=== PATIENT | female | born 1990 | race Caucasian/White ===

== ENCOUNTER → 2019-12-18 07:32 | Outpatient (BNVA) | payer MEDICAID, SELFPAY | PROVIDERS: Visit Provider Psychiatry & Neurology Psychiatry | DX: F60.3 Borderline personality disorder (principal); F43.10 Post-traumatic stress disorder, unspecified; F12.20 Cannabis dependence, uncomplicated; F15.21 Other stimulant dependence, in remission; F17.210 Nicotine dependence, cigarettes, uncomplicated ==

== ENCOUNTER → 2020-12-05 07:37 | Outpatient (BNVA) | payer BC, SELFPAY | PROVIDERS: Visit Provider Psychiatry & Neurology Psychiatry | DX: F60.3 Borderline personality disorder (principal); F43.10 Post-traumatic stress disorder, unspecified; F12.20 Cannabis dependence, uncomplicated; F15.21 Other stimulant dependence, in remission; F17.210 Nicotine dependence, cigarettes, uncomplicated | CPT/HCPCS: 99214 ==

== ENCOUNTER → 2021-01-06 07:38 | Outpatient (BNVA) | payer BC, SELFPAY | PROVIDERS: Visit Provider Psychiatry & Neurology Psychiatry | DX: F43.10 Post-traumatic stress disorder, unspecified (principal); F60.3 Borderline personality disorder; F17.210 Nicotine dependence, cigarettes, uncomplicated; F15.21 Other stimulant dependence, in remission; F12.20 Cannabis dependence, uncomplicated | CPT/HCPCS: 99214 ==

== ENCOUNTER 2022-12-29 20:50 | Inpatient (IN) | payer BC, SELFPAY ==
--- NOTE | 2022-12-29 21:31 | W.ED.PSYCHS ---
HPI - Psych General: Stated Complaint: si Time Seen by Provider: 12/29/22 20:57 Source: patient Mode of arrival: ambulatory Limitations: no limitations History of Present Illness: 32-year-old female states that she has been having increased depression she states she is having some self-harm thoughts no actual suicidal plan she states she is just been very stressed and depressed she has been out of her meds. She denies any worsening improving factors she states she wants to be admitted to the [facility] to get her meds readjusted. Associated symptoms: Reports depression Review of Systems Const: Denies: fever(s), chills, body aches or change in appetite ENMT: Denies: throat pain or dental pain Card: Denies: chest pain Resp: Denies: dyspnea GI: Denies: abdominal pain, nausea, vomiting or diarrhea : Denies: dysuria Musc: Denies: neck pain or back pain Skin/Breast: Denies: rash Neuro: Denies: headache(s) Psych: Reports: depression [facility] ED PFSH: Medical History Borderline personality disorder Cigarette smoker Complex posttraumatic stress disorder Other stimulant dependence, in remission Physical Exam Const: COMMON NORMALS: no acute distress and patient oriented x3 HENMT: COMMON NORMALS: normocephalic HEAD & SCALP: normocephalic Eye: COMMON NORMALS: conjunctivae normal CONJUNCTIVA: Yes conjunctivae normal Neck/C-Spine: COMMON NORMALS: supple Chest: COMMONS NORMALS: normal inspection of the chest Resp: COMMON NORMALS: normal respiratory effort Cardio: COMMON NORMALS: regular rate RATE: regular rate Extremity: COMMON NORMALS: normal to inspection Neuro: COMMON NORMALS: patient oriented x3 Psych: COMMON NORMALS: mental status grossly normal MOOD & AFFECT: Yes depressed mood MDM - Psych Medical Decision Making Patient presents with depression she is voluntarily want to be admitted she is not actively suicidal did speak to the psychiatrist will admit for depression and to restart her psych meds. Medical Records I reviewed the patient's medical records. Lab Data I reviewed the patient's lab results. Discharge Plan Discharge Patient Disposition: Admitted As Inpatient Admit Provider: Riley Root Clinical Impression: Suicidal ideation Condition: Stable Coding Level of Care Code ED Quality Control Analyst for Deborah Chicas
[2022-12-29 21:44] VITALS: BMI 30.4
[2022-12-29 21:50] VITALS: BP 148/88; PULSE 81; RESP 18; TEMP 36.6; O2SAT 97
[2022-12-29 22:14] LABS: Basophils # 0.1 10^3/uL (0.0-0.1); Eosinophils # 0.2 10^3/uL (0.0-0.8); Eosinophils % 2.9 %; Hematocrit 39.7 % (37.0-47.0); Hemoglobin 13.3 g/dL (11.5-15.3); Lymphocytes # 2.3 10^3/uL (0.8-4.8); Lymphocytes % 29.7 %; Mean Corpuscular HGB Conc 33.5 g/dL (30.0-36.0); Mean Corpuscular Volume 86.5 fl (81-99); Mean Platelet Volume 10.1 fL (7.4-10.4); Monocytes # 0.6 10^3/uL (0.2-0.9); Monocytes % 8.2 %; Neutrophils # 4.35 10^3/uL (1.8-7.7); Neutrophils % 56.8 %; Nucleated Red Blood Cells % 0 %; Platelet Count 285 10^3/cmm (130-400); Red Blood Count 4.59 10^6/uL (4.1-5.3); Red Cell Distribution Width 12.9 % (12.1-15.1); White Blood Count 7.7 10^3/uL (4.0-10.0)
[2022-12-29 22:25] LABS: Alanine Aminotransferase 25 U/L (0-33); Albumin Level 4.1 g/dL (3.5-5.2); Alkaline Phosphatase 70 U/L (35-105); Blood Urea Nitrogen 11 mg/dL (6-20); Calcium 8.7 mg/dL (8.5-10.5); Carbon Dioxide 23 mmol/L (22-29); Chloride 104 mmol/L (98-107); Globulin 2.8 g/dL (1.3-4.6); Glomerular Filtration Rate 141.2 mL/min (90-130); Glucose 97 mg/dL (65-115); Osmolality Calculated 285 mOsm/kg (285-295); Salicylate 0.6 mg/dL (3-10); Sodium 138 mmol/L (136-145); Total Bilirubin 0.5 mg/dL (0.15-1.2); Total Protein 6.9 g/dL (6.6-8.7)
[2022-12-29 22:26] LABS: Acetaminophen < 5.0 ug/mL (10-30); Alcohol Level < 10 mg/dL (0-10)
[2022-12-29 22:27] LABS: Anion Gap 14.8 (5-19); Aspartate Amino Transferase 24 U/L (0-32); Potassium 3.8 mmol/L (3.5-5.1)
[2022-12-29 23:00] VITALS: BP 152/99; PULSE 73; RESP 18; TEMP 36.6; O2SAT 97
[2022-12-30] MEDS: nicotine 2 mg Gum BUCCAL ×2 (00:24→08:20)
[2022-12-30 00:46] LABS: HCG Qualitative Urine. Negative (Negative)
[2022-12-30 01:44] LABS: Amphetamines Screen Urine Positive (Negative); Barbiturates Screen Urine Negative (Negative); Benzodiazepines Screen Urine Negative (Negative); Cocaine Screen Urine Negative (Negative); Opiate Screen Urine Negative (Negative); PCP Screen Urine Negative (Negative); THC Screen Urine Positive (Negative)
[2022-12-30 06:00] VITALS: BP 157/81; PULSE 74; RESP 18; O2SAT 98
[2022-12-30] MEDS: buPROPion XL (24 HR) 300 mg Tablet PO (08:19)
[2022-12-30] MEDS: lisinopril 10 mg Tablet 30 MG PO (08:19)
--- NOTE | 2022-12-30 09:38 | PC.NURSE ---
During morning assessment, patient denies SI, HI, AVH, anxiety, and depression. Patient states that she does feel some irritability. When asked what she is irritated about, patient couldn't answer.
[2022-12-30] MEDS: nicotine 4 mg lozenge MUCOUS MEM (12:12)
[2022-12-30] MEDS: OLANZapine 5 mg ODT PO (13:48)
--- NOTE | 2022-12-30 13:49 | PC.NURSE ---
Patient came up to nurse, crying, stating that she is experiencing anxiety and withdrawals. Patient then talked with Dr. Davila for a while. After that, patient tearful, still wanting something to help alleviate anxiety. Administered 5mg Zyprexa PO.
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
[2022-12-30 14:00] VITALS: BP 126/82; PULSE 78; RESP 18; TEMP 36.8; O2SAT 98
[2022-12-30] MEDS: paliperidone ER 3 mg Tablet PO (20:06)
[2022-12-30 20:59] VITALS: RESP 15
[2022-12-30] MEDS: acetaminophen 325 mg Tablet 650 MG PO (22:56)
[2022-12-31 06:00] VITALS: BP 157/71; PULSE 67; RESP 15; O2SAT 96
[2022-12-31] MEDS: buPROPion XL (24 HR) 300 mg Tablet PO (08:56)
[2022-12-31] MEDS: escitalopram 10 mg Tablet PO (08:56)
[2022-12-31] MEDS: lisinopril 10 mg Tablet 30 MG PO (08:56)
[2022-12-31] MEDS: nicotine 2 mg Gum BUCCAL ×3 (13:02→21:27)
[2022-12-31 14:00] VITALS: BP 154/84; PULSE 75; RESP 16; TEMP 36.7; O2SAT 97
--- NOTE | 2022-12-31 15:51 | W.PM.NPUPNS ---
Subjective NPU Subjective: 32-year-old white female admitted with methamphetamine abuse with associated depression and aggression when withdrawing from the stimulant. She had continue to endorse depressed mood. She had reported some improvement in sleep. She had endorsed some feelings of hopelessness. She was agreeable to receiving counseling for her addiction. She had reported difficulties with concentration and reported frequent fatigue and low energy. Patient had reported some feelings of worthlessness. She had reported often feeling tired and not rested when awakening. She had been able to attend groups and reported poor appetite. Mental Status Exam MSE Comments: .She is a casually dressed obese white female who appeared her stated age.? She appeared in moderate to severe distress.? She was less tearful during the interview.? She had poor eye contact.? Her gait was within normal limits.? Her hygiene was poor.? There was no evidence of any abnormal involuntary motor movements tics or tremors appreciated.? Her mood continues to be described as depressed.? Her affect was dysphoric and mood-congruent.? Her thought process was linear, logical and goal-directed.? Her thought content showed no evidence of active suicidal or homicidal ideation.? There was no clear evidence of delusional thinking she did not appear to be responding to internal stimuli.? Her recent and remote memory appeared grossly intact.? Her insight was poor.? Her judgment was poor.? Her impulse control appeared limited.? Her attention span appeared faired. Vitals/I&O/Wt Last Vital Signs Temp 98.0 F 12/31/22 14:00 Pulse 75 12/31/22 14:00 Resp 16 12/31/22 14:00 BP 154/84 12/31/22 14:00 Pulse Ox 97 12/31/22 14:00 O2 Del Method Room Air 12/31/22 14:00 Weight last 48 hrs Weight 90.718 kg Data NPU 12/29/22 21:51 12/29/22 21:51 A&P Assessment and plan (1) Dysthymic disorder: (2) Methamphetamine dependence: (3) Complex posttraumatic stress disorder: (4) Borderline personality disorder: Plan Dayami is a 32-year-old white female with a history of methamphetamine dependence along with a history of dysthymia and periods of intense agitation currently endorsing increased agitation, homicidal thoughts and worsening depression. 1. Encourage individual, group and milieu therapy. ?2.Recommend sober living treatment at the highest level of care to which the patient is willing to commit. 3.Continue q-15 minute checks for safety.? 4.Continue Wellbutrin XL 300mg in am, lexapro 10mg in am, and Invega 3mg at night to target agitation. Involuntary Hold Information 96 Hour Hold: 96 Hour Involuntary Admission: No Attestations NPU Medical Necessity Statement*: Inpatient hospitalization is medically necessary and deemed to be the clinically appropriate intevention at this time.? We will monitor/initiate medications and make changes as indicated. Her likely length of stay is 3-5 days. Coding Level of Care Code Acute Code for g Fwd Diagnoses Dysthymic disorder F34.1 Methamphetamine dependence F15.20 Complex posttraumatic stress disorder F43.10 Borderline personality disorder F60.3
[2022-12-31 20:08] VITALS: BP 128/70; PULSE 79; RESP 16; O2SAT 93
[2022-12-31] MEDS: paliperidone ER 3 mg Tablet PO (21:25)
[2023-01-01] MEDS: nicotine 2 mg Gum BUCCAL ×3 (03:44→17:26)
[2023-01-01] MEDS: hyDROXYzine 25 mg Capsule 50 MG PO (03:46)
--- NOTE | 2023-01-01 04:14 | PC.NURSE ---
Patient has slept this shift only coming to nurses station for snacks or medication. Patient denies SI/HI/AVH. She endorses anxiety rated 7/10 and depression 6/10. Affect flat with poor eye contact. Patient insight is poor.
[2023-01-01 06:00] VITALS: BP 151/69; PULSE 68; RESP 16; O2SAT 95
[2023-01-01] MEDS: buPROPion XL (24 HR) 300 mg Tablet PO (09:04)
[2023-01-01] MEDS: escitalopram 10 mg Tablet PO (09:04)
[2023-01-01] MEDS: lisinopril 10 mg Tablet 30 MG PO (09:04)
--- NOTE | 2023-01-01 13:13 | W.PM.NPUPNS ---
Subjective NPU Subjective: 32-year-old white female admitted with methamphetamine abuse with associated depression and aggression when withdrawing from the stimulant. She had continue to endorse depressed mood. She had continued to isolate herself on the milieu. She had reported feeling tired and stated that she had used methamphetamine to help with her chronic problems with low energy. She had reported sleeping better and stated that she felt less angry with her nighttime medication. She had expressed no side effects from her current medications. She reported some continued feelings of hopelessness and stated that she continued to feel sad at times. She had continued to endorse PTSD related symptoms as well. Mental Status Exam MSE Comments: .She is a casually dressed obese white female who appeared her stated age.? She was lying in bed. She appeared in moderate distress.? She had improved eye contact. Her gait was within normal limits.? Her hygiene was improved.? There was no evidence of any abnormal involuntary motor movements tics or tremors appreciated.? Her mood continues to be described as depressed.? Her affect was flat. Her thought process was linear, logical and goal-directed.? Her thought content showed no evidence of active suicidal or homicidal ideation.? There was no clear evidence of delusional thinking and she did not appear to be responding to internal stimuli.? Her recent and remote memory appeared grossly intact.? Her insight was poor.? Her judgment was improving.? Her impulse control appeared limited.? Her attention span appeared fair. Vitals/I&O/Wt Last Vital Signs Temp 98.0 F 12/31/22 14:00 Pulse 68 01/01/23 06:00 Resp 16 01/01/23 06:00 BP 151/69 01/01/23 06:00 Pulse Ox 95 01/01/23 06:00 O2 Del Method Room Air 01/01/23 06:00 Data NPU 12/29/22 21:51 12/29/22 21:51 A&P Assessment and plan (1) Dysthymic disorder: (2) Methamphetamine dependence: (3) Complex posttraumatic stress disorder: (4) Borderline personality disorder: Plan Dayami is a 32-year-old white female with a history of methamphetamine dependence along with a history of dysthymia and periods of intense agitation currently endorsing increased agitation, homicidal thoughts and worsening depression. 1. Encourage individual, group and milieu therapy. She would benefit from dual diagnosis treatment to target ptsd, depression and substance abuse issues. 2.Recommend sober living treatment at the highest level of care to which the patient is willing to commit. 3.Continue q-15 minute checks for safety.? 4.Continue Wellbutrin XL 300mg in am, lexapro 10mg in am, and Invega 3mg at night to target agitation. Involuntary Hold Information 96 Hour Hold: 96 Hour Involuntary Admission: No Attestations NPU Medical Necessity Statement*: Inpatient hospitalization is medically necessary and deemed to be the clinically appropriate intevention at this time.? We will monitor/initiate medications and make changes as indicated. Her likely length of stay is 3-5 days. Coding Level of Care Code Acute Code for g Fwd Diagnoses Dysthymic disorder F34.1 Methamphetamine dependence F15.20 Complex posttraumatic stress disorder F43.10 Borderline personality disorder F60.3
[2023-01-01 13:40] VITALS: BP 135/75; PULSE 95; RESP 15; TEMP 37.1; O2SAT 96
[2023-01-01 19:50] VITALS: BP 128/75; PULSE 91; RESP 17; TEMP 36.6; O2SAT 96
[2023-01-02 06:00] VITALS: BP 165/94; PULSE 79; RESP 16; TEMP 37; O2SAT 97
[2023-01-02] MEDS: buPROPion XL (24 HR) 300 mg Tablet PO (08:43)
[2023-01-02] MEDS: lisinopril 10 mg Tablet 30 MG PO (08:43)
[2023-01-02] MEDS: escitalopram 10 mg Tablet PO (08:43)
[2023-01-02] MEDS: nicotine 2 mg Gum BUCCAL ×3 (09:34→18:05)
--- NOTE | 2023-01-02 13:37 | P.NPUPN_ITS ---
Subjective NPU Subjective: 32-year-old white female admitted with methamphetamine abuse with associated depression and aggression when withdrawing from the stimulant. The patient had described feeling better today. She had continued to isolate herself on the milieu. She had reported that her anger had been under better control. She had expressed desire to begin counseling but preferred [id number] counseling [facility]wig [facility]i over the phone counseling. She reported no side effects from her medication. She had reported continued anxiety but reported no panic attacks. She had reported an extended history of trauma related events and stated that she was hopeful about working through her trauma with therapy. Mental Status Exam MSE Comments: .She is a casually dressed obese white female who appeared her stated age.? She was lying in bed. She appeared in no acute distress.? She had improved eye contact. Her gait was within normal limits.? Her hygiene was improved.? There was no evidence of any abnormal involuntary motor movements tics or tremors appreciated.? Her mood was described as okay today. Her affect was flat. Her thought process was linear, logical and goal-directed.? Her thought content showed no evidence of active suicidal or homicidal ideation.? There was no clear evidence of delusional thinking and she did not appear to be responding to internal stimuli.? Her recent and remote memory appeared grossly intact.? Her insight was poor.? Her judgment was improving.? Her impulse control appeared to be improving as well.? Her attention span appeared fair. Vitals/I&O/Wt Last Vital Signs Temp 98.6 F 01/02/23 06:00 Pulse 79 01/02/23 06:00 Resp 16 01/02/23 06:00 BP 165/94 01/02/23 06:00 Pulse Ox 97 01/02/23 06:00 O2 Del Method Room Air 01/02/23 06:00 Weight last 48 hrs Weight 110.132 kg Data NPU 12/29/22 21:51 12/29/22 21:51 A&P Assessment and plan (1) Dysthymic disorder: (2) Methamphetamine dependence: (3) Complex posttraumatic stress disorder: (4) Borderline personality disorder: Plan Dayami is a 32-year-old white female with a history of methamphetamine dependence along with a history of dysthymia and periods of intense agitation currently endorsing increased agitation, homicidal thoughts and worsening depression. 1. Encourage individual, group and milieu therapy. She would benefit from dual diagnosis treatment to target ptsd, depression and substance abuse issues. 2.Recommend sober living treatment at the highest level of care to which the patient is willing to commit. 3.Continue q-15 minute checks for safety.? 4.Continue Wellbutrin XL 300mg in am, lexapro 10mg in am, and Invega 3mg at night to target agitation. 5. Likely d/c home tommorow. Recommending psychotherapy to target PTSD issues, substance abuse issues as well. Involuntary Hold Information 96 Hour Hold: 96 Hour Involuntary Admission: No Attestations NPU Medical Necessity Statement*: Inpatient hospitalization is medically necessary and deemed to be the clinically appropriate intevention at this time.? We will monitor/initiate medications and make changes as indicated. Her likely length of stay is 3-5 days. Coding Level of Care Code Acute Code for g Fwd Diagnoses Dysthymic disorder F34.1 Methamphetamine dependence F15.20 Complex posttraumatic stress disorder F43.10 Borderline personality disorder F60.3
[2023-01-02 14:00] VITALS: BP 145/99; PULSE 112; RESP 17; TEMP 36.9; O2SAT 96
[2023-01-02] MEDS: hyDROXYzine 25 mg Capsule 50 MG PO (15:29)
[2023-01-02 17:14] VITALS: BP 146/77
[2023-01-02 19:39] VITALS: BP 132/73; PULSE 89; RESP 17; TEMP 37.1; O2SAT 95
[2023-01-02] MEDS: paliperidone ER 3 mg Tablet PO (20:41)
[2023-01-03 06:00] VITALS: BP 125/77; PULSE 85; RESP 16; O2SAT 93
[2023-01-03] MEDS: buPROPion XL (24 HR) 300 mg Tablet PO (08:02)
[2023-01-03] MEDS: lisinopril 10 mg Tablet 30 MG PO (08:02)
[2023-01-03] MEDS: escitalopram 10 mg Tablet PO (08:02)
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
[2023-01-03 11:07] VITALS: BP 125/77; PULSE 85; RESP 16; O2SAT 93
[2023-01-03] MEDS: nicotine 2 mg Gum BUCCAL (11:16)
== END 2023-01-03 12:50 | disposition home or self-care (01) | DRG 881 ==
LOC: ER 20:57 → NP 21:28
PROVIDERS: Admitting Provider Psychiatry & Neurology Psychiatry; Emergency Provider Emergency Medicine; Visit Provider Psychiatry & Neurology Psychiatry
DX: F32.A Depression, unspecified (principal); F15.20 Other stimulant dependence, uncomplicated; R45.851 Suicidal ideations; Z91.148 Patient's other noncompliance with medication regimen for other reason; F60.3 Borderline personality disorder; F17.210 Nicotine dependence, cigarettes, uncomplicated; F43.10 Post-traumatic stress disorder, unspecified; R45.850 Homicidal ideations; Z91.410 Personal history of adult physical and sexual abuse; Z62.811 Personal history of psychological abuse in childhood
CPT/HCPCS: 36415; 80053; 80306; 80307; 81025; 85025; 97150; 97165; 99238; 99285